=== PATIENT | male | born 1960 | race Caucasian/White ===

== ENCOUNTER 2018-09-06 12:27 | Outpatient (CLI) | payer OTHER ==
--- NOTE | 2018-09-06 15:02 | MRI ---
MRI BRAIN WITHOUT AND WITH CONTRAST: Date: 09/06/18 HISTORY: Multiple sclerosis. FINDINGS: No evidence of infarct, hemorrhage, mass, midline shift, or abnormal extra-axial fluid collections ar e seen. No restricted diffusion is seen. There are a multiple foci of T2 prolongation in the perivent ricular white matter. One of these in the left centrum semiovale demonstrates postcontrast enhancemen t. There is mucosal disease in the paranasal sinuses. IMPRESSION: Findings are consistent with multiple sclerosis with an active demyelinating plaque in the left centr um semiovale. POS: [facility]
== END 2018-09-06 12:28 | disposition home or self-care (01) ==
LOC: SCSMRI 12:27
PROVIDERS: ATTEND Psychiatry & Neurology Neurology
DX: G35 Multiple sclerosis (principal)
CPT/HCPCS: 70553; 82565

== ENCOUNTER 2019-01-02 11:08 | Day surgery (SDC) | payer OTHER ==
[2019-01-01 10:54] VITALS: BMI 21.2
--- NOTE | 2019-01-01 13:11 | HP ---
HISTORY OF PRESENT ILLNESS: This is a 58-year-old male comes for a colonoscopy for colon cancer screening. The patient has no specific GI symptoms. There is no family history of colon cancer. His bowel movements and occasionally has had fecal incontinence. ALLERGIES: NONE. SOCIAL HISTORY: The patient does not smoke or drink alcohol. MEDICAL ILLNESS: 1. Multiple sclerosis. 2. History of occasional fecal incontinence. PAST SURGICAL HISTORY: None. PHYSICAL EXAMINATION: GENERAL: He is thin built, appears comfortable. VITAL SIGNS: His pulse is 72 and blood pressure 130/80. HEENT: Conjunctivae clear. CARDIOVASCULAR SYSTEM: First and second heart sounds heard. LUNGS: Clear to auscultation. ABDOMEN: Soft. No organomegaly. No tenderness. No masses. ADMITTING DIAGNOSIS: A 58-year-old male, undergoing colonoscopy for colon cancer screening. Job ID: [id number]
--- NOTE | 2019-01-02 16:44 | OP ---
DATE OF PROCEDURE: 01/02/2019 PROCEDURE PERFORMED: Colonoscopy. PREOPERATIVE DIAGNOSIS: This is a 58-year-old male, undergoing colonoscopy for colon cancer screening. POSTOPERATIVE DIAGNOSES: 1. Occasional sigmoid diverticular disease. 2. Hemorrhoids. 3. A very tortuous, redundant colon. DESCRIPTION OF PROCEDURE: The patient was placed on his left lateral position and was given sedation by Anesthesia Department. A rectal exam was done before the scope was advanced into the rectum. No lesions felt on rectal exam. A [employer]ax video colonoscope was introduced into the rectum and advanced all the way into the cecum. The prep was excellent. The mucosa appears normal throughout the colon with normal vascular pattern. The exam was difficult because the colon was very tortuous, redundant. Abdominal compression was used to advance the scope all the way into the cecum. The appendicular opening, ileocecal valve, cecum, no pathology. Withdrawal of scope in the cecum, ascending colon, hepatic flexure, no pathology seen. The transverse colon, splenic flexure, descending colon, no pathology seen. The sigmoid colon shows mild diverticular disease and rectal hemorrhoids. DISCHARGE PLANNING: Rey Perez is a 58-year-old male who came for a colonoscopy for colon cancer screening. He was found to have mild sigmoid diverticular disease and hemorrhoids. DISCHARGE RECOMMENDATIONS: The patient was advised to call me if he develops abdominal pain, hematochezia. In the absence of any other symptoms, he will come back to me in 2 weeks. Job ID: [id number]
== END 2019-01-02 15:10 | disposition home or self-care (01) ==
LOC: SDC 11:08
PROVIDERS: ATTEND Internal Medicine Gastroenterology
PROC: 0DJD8ZZ Inspection of Lower Intestinal Tract, Via Natural or Artificial Opening Endoscopic (ICD-10-PCS; principal; 2019-01-02)
DX: Z12.11 Encounter for screening for malignant neoplasm of colon (principal); K57.30 Diverticulosis of large intestine without perforation or abscess without bleeding; K64.9 Unspecified hemorrhoids; K63.89 Other specified diseases of intestine; G35 Multiple sclerosis; Z79.899 Other long term (current) drug therapy

== ENCOUNTER 2019-03-11 13:51 | Outpatient (CLI) | payer OTHER ==
[~2019-03-11 13:51] MED LIST: Gadobenate Dimeglumine 529 MG/1 ML (20ML VIAL) ONE
--- NOTE | 2019-03-11 15:08 | MRI ---
MRI BRAIN WITH AND WITHOUT CONTRAST: DATE: 03/11/2019 HISTORY: 58-year-old male with multiple sclerosis. Follow-up. COMPARISON: 09/06/2018 TECHNIQUE: Multiplanar, multisequence MRI of the brain performed pre- and post-IV injection of gadolinium based contrast agent. FINDINGS: Again noted are the multiple small T2 hyperintense lesions in the bilateral simmons radiata and centru m semiovale representing demyelinating plaques. Many have Kauffman's finger configuration. There are multiple lesions involving the corpus callosum and septocallosal interface. Previously, there was enhancement of one of these lesions in the left simmons radiata. That lesion is smaller, more faint, and no longer enhances. However, located more posteriorly in the contralateral right parietal simmons radiata, there is a new 4 mm T2 hyperintense demyelinating plaque, which currently enhances with contrast, indicating currently active demyelination. Furthermore, there are a few new nonenhancing lesions in the right medial centrum semiovale that are currently not enhancing. Ventricles are normal in size and configuration. No mass effect or midline shift. No acute or remote intra-axial hemorrhage. No restricted diffusion. IMPRESSION: 1) multiple sclerosis. 2) interval worsening of multiple sclerosis, with a cluster of several new demyelinating plaque in th e right cerebral deep white matter at the centrum semiovale. 3) a new small right parietal deep white matter lesion enhances, indicating currently active demyelin ation.
== END 2019-03-11 13:52 | disposition home or self-care (01) ==
LOC: SCSMRI 13:51
PROVIDERS: ATTEND Psychiatry & Neurology Neurology
DX: G35 Multiple sclerosis (principal)
CPT/HCPCS: 70553; 82565; A9577

== ENCOUNTER 2021-07-28 12:21 | Outpatient (CLI) | payer OTHER ==
[~2021-07-28 12:21] MED LIST changes: -Gadobenate Dimeglumine 529 MG/1 ML (20ML VIAL) ONE; +Magnevist 469MG/ML 20 ML VIAL ONE
== END 2021-07-28 12:22 | disposition home or self-care (01) ==
LOC: BICMRI 12:21
PROVIDERS: ATTEND Psychiatry & Neurology Neurology
DX: G35 Multiple sclerosis (principal); I67.82 Cerebral ischemia; G95.89 Other specified diseases of spinal cord; M48.02 Spinal stenosis, cervical region; M40.294 Other kyphosis, thoracic region
CPT/HCPCS: 70553; 72156; 72157; 82565; A9579